=== PATIENT | female | born 2000 | race Caucasian/White ===

== ENCOUNTER 2018-06-12 14:58 | Inpatient (IN) | payer OTHER ==
[2018-06-12] MEDS ORDERED: Ondansetron PF 4 MG/2 ML Vial IVP PRN (22:18)
[2018-06-12] MEDS ORDERED: NS / Oxytocin 40 units/1000ml 1,000 ML IV PRN (22:18)
[2018-06-12] MEDS ORDERED: Lidocaine 1% (PF) 30 ML VIAL SC PRN (22:18)
[2018-06-12] MEDS ORDERED: Acetaminophen 500 MG TAB PO PRN (22:18)
[2018-06-12] MEDS ORDERED: Butorphanol Tartrate 1 MG/ML VIAL SLOW IVP PRN (22:18)
[2018-06-12] MEDS ORDERED: Promethazine HCl 25 MG/ML VIAL IM PRN (22:18)
[2018-06-12] MEDS ORDERED: NS w/ Oxytocin 10 units 500 ML IV SCH (22:18)
[2018-06-12 22:41] VITALS: BMI 30.8
[2018-06-12 22:51] LABS: Hemoglobin 9.2 g/dL (12.0-16.0); Mean Corpuscular HGB CONC 32.2 g/dL (32.0-36.0); Mean Corpuscular Hemoglobin 25.1 pg (25.0-35.0); Mean Corpuscular Volume 78.2 fL (78.0-98.0); Mean Platelet Volume 9.1 fL (7.4-10.4); Platelet Count 275 thou/uL (130-400); RBC Distribution Width 14.2 % (11.5-14.5); Red Blood Cell (RBC) Count 3.65 mill/uL (4.00-5.20)
[2018-06-12] MEDS: Lactated Ringer's 1,000 ML IV SCH (22:57)
[2018-06-12 23:28] LABS: Syphilis Antibody Nonreactive (Nonreactive); Syphilis Antibody Index 0.03 S/CO (<1.00 Non-Reactive)
[2018-06-12 23:37] LABS: HBSAg Index 0.49 S/CO (0-0.99); Hep B Surf Ag Non-Reactive S/CO (NonReactive)
[2018-06-13] MEDS: Lactated Ringer's 1,000 ML IV SCH ×3 (04:51→16:33)
[2018-06-13] MEDS: Misoprostol 100 MCG TAB VAG SCH ×5 (06:58→16:34)
[2018-06-13] MEDS ORDERED: Fentanyl 4 mcg/Bup 0.1% Cadd 100 ML ONE ×2 (07:51→15:14)
[2018-06-13] MEDS ORDERED: Ondansetron PF 4 MG/2 ML Vial IVP PRN (08:47)
[2018-06-13] MEDS ORDERED: Naloxone HCl 0.4 mg/ml Vial IVP PRN ×2 (08:47)
[2018-06-13] MEDS ORDERED: Promethazine HCl 25 MG/ML VIAL IM PRN (08:47)
[2018-06-13] MEDS ORDERED: diphenhydrAMINE 50 MG/ML VIAL IVP PRN (08:47)
[2018-06-13] MEDS ORDERED: ePHEDrine/0.9% NaCl/PF SYRINGE 50 mg/10 ml SLOW IVP PRN (08:47)
[2018-06-13] MEDS ORDERED: Eucerin (Mineral Oil/Petrolatum,White) 30 gm Jar TOP PRN (08:47)
[2018-06-13] MEDS ORDERED: Acetaminophen 325 MG TAB PO PRN (08:47)
[2018-06-13] MEDS ORDERED: Lactated Ringer's 500 ML IV PRN (08:47)
[2018-06-13] MEDS ORDERED: Communication Order-Pharmacy FS SCH (09:00)
[2018-06-13] MEDS ORDERED: Fentanyl 4 mcg/Bupivacaine 0.1% Cassette 100 ML EPIDURAL SCH (09:00)
[2018-06-13] MEDS ORDERED: Fentanyl 100 MCG/2 ML VIAL ONE (12:08)
[2018-06-13] MEDS ORDERED: Milk Of Magnesia 30 ML UDCUP PO PRN (19:03)
[2018-06-13] MEDS ORDERED: Lanolin Ointment 7 GM TUBE TOP PRN (19:03)
[2018-06-13] MEDS ORDERED: Acetaminophen/Codeine 30-300mg Tablet PO PRN (19:03)
[2018-06-13] MEDS ORDERED: Bisacodyl 10 MG SUPP PR PRN (19:03)
[2018-06-13] MEDS ORDERED: Misoprostol 200 MCG TAB VAG PRN (19:03)
[2018-06-13] MEDS ORDERED: Benzocaine-Menthol 82.5 ML CAN TOP PRN (19:03)
[2018-06-13] MEDS ORDERED: Preparation H Ointment 28 GM TUBE PR PRN (19:03)
[2018-06-13] MEDS ORDERED: diphenhydrAMINE 25 MG CAP PO PRN (19:03)
--- NOTE | 2018-06-13 19:06 | PDOC.OPDEL ---
OB Operative/Delivery Note Delivery Dr/Surgeon: Fritz Pre-Delivery Diagnosis: elective induction Procedure/Post Delivery Dx: spontaneous vaginal delivery Weeks gestation: 40 Anesthesia: epidural - Findings A Sex: female - 1 min: 8 - 5 min: 9 - Additional Findings/Plan Placenta delivered: spontaneous Repaired Obstetrical Laceration: episiotomy (Midline performed to expedite delivery due to persistent heart rate in the 70's. Nuchal cord noted and reduced after delivery of head.) Estimated blood loss: qbl 275 ml
[2018-06-13] MEDS ORDERED: NS / Oxytocin 40 units/1000ml 1,000 ML IV SCH (19:15)
[2018-06-13] MEDS: Ibuprofen 800 MG TAB PO SCH (20:15)
[2018-06-13] MEDS ORDERED: Mag-Al 1200 mg/1200 mg/30 ML UDCUP PO SCH (21:00)
[2018-06-13] MEDS ORDERED: Adacel (T-DAP) 0.5 ML SYRINGE IM ONE (21:00)
[2018-06-13] MEDS: Famotidine 20 MG TAB PO SCH (21:37)
[2018-06-13] MEDS: Docusate Calcium (SURFAK) 240 MG CAP PO SCH (22:55)
[2018-06-14] MEDS ORDERED: Bupivacaine 0.25% HCL 30 ML VIAL ONE (00:01)
[2018-06-14] MEDS ORDERED: Bupivacaine HCl 0.25%/Epi 0.0005/PF 10 ML VIAL FS ONE (00:01)
[2018-06-14] MEDS: Misoprostol 100 MCG TAB VAG SCH (01:47)
[2018-06-14] MEDS: Ibuprofen 800 MG TAB PO SCH ×3 (05:14→21:43)
--- NOTE | 2018-06-14 08:29 | PRG ---
DATE OF SERVICE: 06/14/2018 SUBJECTIVE: The patient is day 1, status post a term spontaneous vaginal delivery following induction of labor. She is tolerating p.o., voiding on her own, having good pain control and decreased lochia. OBJECTIVE: VITAL SIGNS: This morning blood pressure is 111/59, temperature 98.4, pulse is 74, and respiratory rate of 18. GENERAL: She appears to be in no acute distress. She is alert and oriented, cooperative and pleasant to interact with. ABDOMEN: Fundus is firm. EXTREMITIES: Nontender, nonedematous, with symmetrical edema. ASSESSMENT AND PLAN: The patient is a 18-year-old female, day 1, status post a term spontaneous vaginal delivery. She will continue care with anticipation for discharge tomorrow. Job ID: [id number]
[2018-06-14] MEDS: Docusate Calcium (SURFAK) 240 MG CAP PO SCH ×2 (09:07→21:44)
[2018-06-14] MEDS: Ferrous Sulfate 325 MG TAB PO SCH ×2 (09:07→16:35)
[2018-06-14] MEDS: Famotidine 20 MG TAB PO SCH ×2 (09:07→21:44)
[2018-06-14] MEDS: Prenatal Vitamin 1 TAB PO SCH (09:07)
[2018-06-14] MEDS: Acetaminophen/Codeine 30-300mg Tablet PO PRN ×2 (14:11→20:32)
[2018-06-15] MEDS: Ibuprofen 800 MG TAB PO SCH ×2 (05:39→12:59)
[2018-06-15 08:12] VITALS: BP 112/55; TEMP 98.6
--- NOTE | 2018-06-15 08:15 | PDOC.PP ---
Post Progress Note Post Day #: 2 PO intake tolerated: yes Flatus: yes Ambulation: yes Vital Signs (12 hours) Temp Pulse Resp BP Pulse Ox 06/15/18 08:11 98.6 F 85 16 112/55 L 96 06/15/18 03:20 98.0 F 80 18 123/59 L 06/15/18 00:20 97.7 F 69 18 115/59 L Weight Weight 197 lb - Physical Examination Abdominal: + bowel sounds Extremities: negative homans (B) Result Diagrams: 06/12/18 22:21 Additional Labs: Post Labs Blood Type A POSITIVE 06/13/18 00:33 Hep Bs Antigen Non-Reactive S/CO (NonReactive) 06/12/18 22:21 - Assessment/Plan Post day 1-2. doing well. D/c home when baby is released. Follow up in 6 weeks.
[2018-06-15] MEDS: Docusate Calcium (SURFAK) 240 MG CAP PO SCH (09:14)
[2018-06-15] MEDS: Ferrous Sulfate 325 MG TAB PO SCH ×2 (09:14→17:30)
[2018-06-15] MEDS: Prenatal Vitamin 1 TAB PO SCH (09:14)
[2018-06-15] MEDS: Famotidine 20 MG TAB PO SCH (09:15)
[2018-06-15] MEDS: Acetaminophen/Codeine 30-300mg Tablet PO PRN (13:00)
== END 2018-06-15 18:30 | disposition home or self-care (01) | DRG 807 ==
LOC: L&D 21:59 → 3SW 06-13 22:00 → EDSTATUS 06-16 14:57
PROVIDERS: ADMIT Obstetrics & Gynecology; ATTEND Obstetrics & Gynecology
PROC: 10E0XZZ Delivery of Products of Conception, External Approach (ICD-10-PCS; principal; 2018-06-13)
PROC: 0W8NXZZ Division of Female Perineum, External Approach (ICD-10-PCS; 2018-06-13)
DX: O69.81X0 Labor and delivery complicated by cord around neck, without compression, not applicable or unspecified (principal); Z37.0 Single live birth; Z3A.40 40 weeks gestation of pregnancy; O76 Abnormality in fetal heart rate and rhythm complicating labor and delivery
CPT/HCPCS: 36415; 51702; 85027; 86780; 86850; 86900; 86901; 87340; 90715; J2405; J2590; J3010; S0020

== ENCOUNTER 2022-02-07 22:06 | Emergency (ER) | payer OTHER ==
[2022-02-07 22:34] LABS: #Eosinphils 0.2 thou/uL (0.0-0.7); #Lymphocytes 3.8 thou/uL (1.20-3.40); #Monocytes 0.9 thou/uL (0.11-0.59); %Basophils 0.1 % (0.0-1.0); %Lymphocytes 23.9 % (21.0-51.0); %Monocytes 5.7 % (0.0-10.0); %Neutrophils 69.3 % (42.0-75.0); Hemoglobin 12.1 g/dL (12.0-16.0); Mean Corpuscular Hemoglobin 29.9 pg (27.0-31.0); Mean Corpuscular Volume 88.1 fl (78.0-98.0); Mean Platelet Volume 7.8 fL (7.4-10.4); Platelet Count 244 10x3/uL (130-400); RBC Distribution Width 11.5 % (11.5-14.5); Red Blood Cell (RBC) Count 4.03 mill/uL (4.20-5.40); White Blood Cell (WBC) Count 15.9 10x3/uL (4.8-10.8)
[2022-02-07 22:54] LABS: Anion Gap 13 mmol/L (10-20); BUN (Urea Nitrogen) 11 mg/dL (7.0-18.7); Calc. Creatinine Clearance 0 mL/min (70-130); Calcium 9.4 mg/dL (7.8-10.44); Carbon Dioxide 22 mmol/L (22-29); Chloride 106 mmol/L (98-107); Estimated GFR 105; Glucose 103 mg/dL (70-105); Potassium 3.5 mmol/L (3.5-5.1); Sodium 137 mmol/L (136-145)
== END 2022-02-08 00:58 | disposition home or self-care (01) ==
LOC: ERS 22:06
DX: O03.4 Incomplete spontaneous abortion without complication (principal); F17.290 Nicotine dependence, other tobacco product, uncomplicated
CPT/HCPCS: 36415; 76856; 80048; 84702; 85025; 86850; 86900; 86901; 93005